=== PATIENT | female | born 1990 | race Caucasian/White ===

== ENCOUNTER 2023-09-05 09:54 | Outpatient (CLI) | payer OTHER, SELFPAY ==
--- NOTE | ~2023-09-05 | XR_ITS ---
EXAMINATION: XR chest 2V DATE: 09/05/2023 10:53 INDICATION: History of rheumatoid arthritis TECHNIQUE: PA and lateral views of the chest are obtained. COMPARISON: None available FINDINGS: The lungs are free of acute opacities. No pleural effusion or pneumothorax. The cardiomedia stinal silhouette is normal. The visualized bones and soft tissues are unremarkable. IMPRESSION: 1. No acute cardiopulmonary abnormality. 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
--- NOTE | ~2023-09-05 | XR_ITS ---
EXAMINATION: XR hand BI arthritis min 3V DATE: 09/05/2023 10:52 INDICATION: Bilateral joint pain of the hands TECHNIQUE: Posteroanterior, lateral, and oblique views of the left and of the right hands as well as a ballcatchers view of both hands were obtained. COMPARISON: None. FINDINGS: Bone alignment is normal. There is no fracture. The joint spaces are maintained. No abnormal erosions are identified. No periarticular soft tissue swelling is evident. IMPRESSION: 1. Unremarkable hand radiographs. 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
== END 2023-09-05 09:55 ==
PROVIDERS: PCP Nurse Practitioner Family
DX: M25.50 Pain in unspecified joint (principal)
CPT/HCPCS: 71046; 73130

== ENCOUNTER 2024-02-03 10:12 | Emergency (ER) | payer OTHER, SELFPAY ==
[2024-02-03 10:24] VITALS: BP 126/85; PULSE 83; RESP 16; TEMP 36.4; O2SAT 100
--- NOTE | 2024-02-03 10:25 | ED.URI ---
HPI - URI/Sore Throat General Chief Complaint: Upper Respiratory Infection Stated Complaint: Sore Throat History of Present Illness HPI Narrative: 33 y/o female presented for c/o sore throat and cough, onset yesterday. Endorses exposure to son with strep. Pt tested negative for flu and covid yesterday at her [facility], could not test for strep. Denies sob, wheezing, n/v/d/f/c. Related Data Home Medications Medication Instructions Recorded Confirmed No Home Medications 02/03/24 02/03/24 Allergies Allergy/AdvReac Type Severity Reaction Status Date / Time No Known Allergies Allergy Verified 02/03/24 10:14 Review of Systems Review of Systems: CONSTITUTIONAL: Denies body aches, fever, chills, or sweats. EYES: Denies visual changes, redness, or discharge. ENT: reports sore throat Denies rhinorrhea, congestion, or otalgia. CARDIOVASCULAR: Denies chest pain, palpitations, or edema. RESPIRATORY: Denies dyspnea. GASTROINTESTINAL: Denies abdominal pain, nausea, vomiting, or diarrhea. SKIN: Denies rash, itching, or wounds. MUSCULOSKELETAL: Denies back pain, joint pain, or myalgia. NEUROLOGIC: Denies headache PMFSH Past Medical History Medical History (Updated 02/03/24 @ 10:34 by Rosemary Jara, LEFTY) Rheumatoid arthritis Exam Narrative: GENERAL: well-appearing, no acute distress. EYES: conjunctivae clear ENT: Mucous membranes moist. TM pearly hernandez with normal light reflex bilaterally; no tragal tenderness. Oropharynx not erythematous without lesions. Tonsils not enlarged and without exudate. No drooling, no hoarseness, no trismus, uvula midline. No tripod positioning, hot potato voice, or soft palate swelling. NECK: Supple. No lymphadenopathy CHEST: Clear to auscultation, breath sounds equal. No respiratory distress, speaks in full sentences. HEART: Regular rate and rhythm. No murmur heard. SKIN: Warm, dry, no rash. NEURO: Alert and oriented x3. Course Course Emergency Course: Patient is aware of diagnosis, understands and agrees to treatment plan. Anticipatory guidance given. Patient agrees to follow-up as directed and is aware of reasons to seek care at the emergency department. Portions of this record may have been created with voice recognition software Level of Care: Express Care Visit MDM - URI/Sore Throat MDM Narrative Medical decision making narrative: neg strep result reviewed with pt. Advise supportive treatments. Patient is appropriate for outpatient treatment and follow-up. Differential Diagnosis Differential diagnosis: Likely upper respiratory infection, viral infection and pharyngitis Discharge Plan Discharge Clinical Impression: Pain in throat Patient Disposition: Home, Self-Care Condition: Stable Instructions: Antibiotic Form, Pharyngitis (ED) Additional Instructions: Rapid strep swab was negative today You will be notified in a few days if the culture comes back positive for strep, and appropriate antibiotics will be called in at that time. if symptoms are due to a viral illness, it is not treated with antibiotics. Viral symptoms can be present for up to 10-14 days. [id number] Recommendations Flonase spray and Zyrtec for sinus congestion Cough syrup may cause drowsiness; avoid driving or take it at night time. Tylenol every 8 hours as needed for pain/fever Soft foods, cool liquids, warm tea. Gargle with warm saltwater twice a day. Chloraseptic spray and throat lozenges. Rest and stay hydrated. --Follow up with your PCP --Go to the ER immediately if you cannot swallow your saliva, trouble breathing/wheezing, throat swelling, pain is persistent and severe Prescriptions: No Action No Home Medications Follow-up/Referrals: ELIZABETH,LEFTY APARICIO [Primary Care Provider] - Time of Disposition: 10:33
[2024-02-03 10:36] LABS: EDSTREPNEGPOS1 Presumptive Negative
== END 2024-02-03 10:36 | disposition home or self-care (01) ==
PROVIDERS: Emergency Provider Nurse Practitioner Family; PCP Nurse Practitioner Family
DX: R07.0 Pain in throat (principal); M06.9 Rheumatoid arthritis, unspecified
CPT/HCPCS: 87081; 87880; 99213; G0463